=== PATIENT | male | born 1975 | race Caucasian/White ===

== ENCOUNTER → 2022-10-29 | Outpatient (CLI) | payer OTHER ==
[~2022-10-29] MED LIST: CARAFATE1 G1 PO; LUNESTA3 MG PO; NEXIUM40 MG PO; REGLAN10 MG PO
== END | disposition home or self-care (01) ==
LOC: ORTHO 01:14
PROVIDERS: ATTEND Orthopaedic Surgery
DX: M25.562 Pain in left knee (principal)